=== PATIENT | male | born 1950 | race Caucasian/White ===

== ENCOUNTER 2021-01-22 19:49 | Emergency (ER) | payer MEDICARE, OTHER ==
[~2021-01-22] VITALS: Ht 180 cm; Wt 79.4 kg
[2021-01-22 20:04] VITALS: BP 161/93
--- NOTE | 2021-01-22 20:21 | ED GI ---
General Chief Complaint: Catheter/Drain/Tube Problems Stated Complaint: PEG TUBE ISSUES Source of Information: Patient History of Present Illness Date Seen by Provider: January 22, 2021 Time Seen by Provider: 20:04 Initial Comments PT ARRIVES VIA POV FROM HOME STATES HIS PEG TUBE HAS NOT BEEN WORKING SINCE THIS MORNING HAS HAD PEG TUBE IN PLACE X 1 1/2 MONTHS. FIRST ONE WAS ONLY IN FOR 1 WEEK, AND HAD TO BE REPLACED. HAS NOT HAD ANY PROBLEMS SINCE THEN, UNTIL THIS MORNING STATES IT LEAKS AROUND IT AND WON'T LET ANYTHING GO IN, WHEN HE TRIES TO USE IT NO ABDOMINAL PAIN NO NAUSEA/VOMITING PT IS BEING TREATED FOR ESOPHAGEAL CANCER--SEES DR. CARRASQUILLO IN [place] LAST CHEMO WAS 2 WEEKS AGO. ALL INTAKE IS VIA FEEDING TUBE--WATER, AND ENSURE, AND HIS MEDICATIONS/PILLS Allergies and Home Medications Patient Home Medication List Home Medication List Reviewed: Yes Review of Systems Review of Systems Constitutional: no symptoms reported Gastrointestinal: See HPI Past Tpxazob-Yhkdjx-Kpuqpr Hx Past Med/Social Hx: Reviewed and Corrections made Past Medical History Surgeries: Yes (PEG TUBE; L CHEST PORT) Abdominal Respiratory: No Gastrointestinal: Yes (ESOPHAGEAL CANCER) Cancer: Yes Esophageal Did You Recieve Any Treatments: Yes What Type of Treatment Did You: Radiation Physical Exam Vital Signs Capillary Refill : Height/Weight/BMI Height: '" Weight: lbs. oz. kg; BMI Method: General Appearance: WD/WN, no apparent distress Gastrointestinal: non tender, soft, other (PEG TUBE IN LEFT MID ABDOMEN; MILD SKIN IRRITATION AROUND THE SITE, BUT NO SIGNS OF OVERT INFECTION. ) Progress/Results/Core Measures Progress Progress Note : Progress Note TUBE VERY EASILY FLUSHES AND IRRIGATES WITH STERILE SALINE, NO LEAKAGE OR PT DISCOMFORT EQUAL AMOUNTS IN AND OUT, ON IRRIGATION. Departure Impression Primary Impression: PEG tube malfunction Disposition: HOME, SELF-CARE Condition: Stable Departure-Patient Inst. Decision time for Depature: 20:20 Referrals: NO,LOCAL PHYSICIAN (PCP/Family) Primary Care Physician Patient Instructions: How to Care for Your PEG Tube Add. Discharge Instructions: RETURN TO ER IF YOUR PROBLEMS RETURN All discharge instructions reviewed with patient and/or family. Voiced understanding. ALTA POOLE DO January 22, 2021 20:21
== END 2021-01-22 20:37 | disposition home or self-care (01) ==
LOC: ER 19:53
DX: K94.23 Gastrostomy malfunction (principal); C15.9 Malignant neoplasm of esophagus, unspecified
CPT/HCPCS: 99281

== ENCOUNTER 2021-01-24 17:42 | Emergency (ER) | payer MEDICARE, OTHER ==
[~2021-01-24] VITALS: Ht 180 cm; Wt 79.0 kg
[2021-01-24 17:50] VITALS: BP 131/86
--- NOTE | 2021-01-24 18:12 | ED GI ---
General Chief Complaint: Catheter/Drain/Tube Problems Stated Complaint: PEG TUBE Nursing Triage Note: PT AMB TO ROOM 5 PT CO OF G TUBE NOT WORKING STATES WHEN FLUSHES COMES BACK OUT Sepsis Screen: No Definite Risk Source of Information: Patient Exam Limitations: No Limitations (ELGIN MARTINEZ APRN) History of Present Illness Date Seen by Provider: January 24, 2021 Time Seen by Provider: 18:00 Initial Comments To ER with concern of G-tube not working. He states that whenever he instills liquid in it it comes right back out and some of it has a brownish appearance which is concerning to him. He has been trying to use [employer] to flush this. Timing/Duration: 1-2 Days Severity/Quality: Moderate Radiation: No Radiation Activities at Onset: None (ELGIN MARTINEZ APRN) Allergies and Home Medications Patient Home Medication List Home Medication List Reviewed: Yes (ELGIN MARTINEZ APRN) Review of Systems Review of Systems Constitutional: see HPI EENTM: No Symptoms Reported Respiratory: No Symptoms Reported Cardiovascular: No Symptoms Reported Gastrointestinal: See HPI Genitourinary: No Symptoms Reported Musculoskeletal: no symptoms reported Skin: no symptoms reported Psychiatric/Neurological: No Symptoms Reported Endocrine: No Symptoms Reported Hematologic/Lymphatic: No Symptoms Reported (ELGIN MARTINEZ APRN) Past Pbrpbrn-Ohyefy-Yogtup Hx Patient Social History Alcohol Use: Denies Use Smoking Status: Former Smoker Recent Infectious Disease Expo: No Recent Hopitalizations: No (ELGIN MARTINEZ APRN) Past Medical History Surgeries: Yes (PEG TUBE; L CHEST PORT) Abdominal Respiratory: No Cardiac: Yes Hypertension Neurological: No Genitourinary: No Gastrointestinal: Yes (ESOPHAGEAL CANCER) Musculoskeletal: No Endocrine: No HEENT: No Cancer: Yes Esophageal Did You Recieve Any Treatments: Yes What Type of Treatment Did You: Radiation Psychosocial: No Integumentary: No (ELGIN MARTINEZ APRN) Physical Exam Vital Signs Vital Signs - First Documented 01/24/21 17:50 Temp 35.7 Pulse 83 Resp 18 B/P (MAP) 131/86 (101) Pulse Ox 96 (AUGIE GREENE MD) Vital Signs Capillary Refill : Less Than 3 Seconds (ELGIN MARTINEZ APRN) Height/Weight/BMI Height: '" Weight: lbs. oz. kg; 24.00 BMI Method: General Appearance: WD/WN, no apparent distress, other (Very pleasant alert and oriented no distress) Neck: non-tender, full range of motion Respiratory: no respiratory distress, no accessory muscle use Gastrointestinal: normal bowel sounds, non tender, soft, other (There is very mild skin erythema around the insertion site of the PEG tube. Open the cap on the PEG tube gastric contents come out and this concerns him. I discussed with him that this is normal and he states that is worse when he standing up. Discussed with him that it would be worse when he is standing up or sitting up and it would be better as far as not coming out the tube when he is laying in a supine or semirecumbent position. The tube flushes very easily. Nothing concerning here and he was provided reassurance only) Neurologic/Psychiatric: alert, normal mood/affect, oriented x 3 Skin: normal color, warm/dry (ELGIN MARTINEZ APRN) Progress/Results/Core Measures Results/Orders Vital Signs/I&O 01/24/21 17:50 Temp 35.7 Pulse 83 Resp 18 B/P (MAP) 131/86 (101) Pulse Ox 96 (AUGIE GREENE MD) Blood Pressure Mean: 101 Progress Progress Note : Progress Note I was physically present in the emergency department as the attending physician during the care of this patient, but I was not directly involved in this patient's care. (AUGIE GREENE MD) Departure Impression Primary Impression: PEG (percutaneous endoscopic gastrostomy) status Disposition: 01 HOME, SELF-CARE Condition: Stable Departure-Patient Inst. Decision time for Depature: 18:11 (ELGIN MARTINEZ APRN) Referrals: NO,LOCAL PHYSICIAN (PCP/Family) Primary Care Physician Patient Instructions: How to Care for Your PEG Tube ELGIN MARTINEZ APRN January 24, 2021 18:12 AUGIE GREENE MD Jan 26, 2021 07:28
== END 2021-01-24 18:14 | disposition home or self-care (01) ==
LOC: EDUNIT# 17:42 → ER 17:43
DX: Z93.1 Gastrostomy status (principal); I10 Essential (primary) hypertension; Z87.891 Personal history of nicotine dependence
CPT/HCPCS: 99283